=== PATIENT | female | born 1990 | race Caucasian/White ===

== ENCOUNTER → 2018-07-04 08:08 | Outpatient (CLI) | payer OTHER, SELFPAY ==
[2018-07-04 09:56] LABS: Add Manual Diff / Slide Review NO; Basophils Absolute Auto 0 /uL (0-100); Basophils Percent Auto 0.6 % (0-2); Eosinophils Absolute Auto 200 /uL (0-450); Eosinophils Percent Auto 3.3 % (2-4); Hematocrit 40.2 % (36-46); Lymphocytes Absolute Auto 1600 /uL (1100-4500); Lymphocytes Percent Auto 27.7 % (25-40); Mean Corpuscular Hemoglobin 28.8 PG (26-34); Mean Corpuscular Volume 82.5 fL (80-100); Monocytes Absolute Auto 300 /uL (0-900); Monocytes Percent Auto 5.4 % (3-14); Neutrophils Absolute Auto 3700 /uL (1500-7000); Platelet Count 228 X10^3/uL (150-400); Red Blood Cell Count 4.87 X10^6/uL (4.0-5.2); Red Cell Distribution Width 13.6 % (11.6-14.8); White Blood Cell Count 5.9 X10^3/uL (4.5-11.0)
[2018-07-04 10:14] LABS: Alanine Aminotransferase 30 IU/L (9-52); Albumin 4.8 g/dL (3.5-5.0); Albumin Globulin Ratio 1.5 (1.0-2.8); Alkaline Phosphatase 47 U/L (38-126); Aspartate Aminotransferase 25 IU/L (14-36); BUN Creatinine Ratio 15.7 (6-22); Bilirubin Total 0.3 mg/dL (0.2-1.3); Blood Urea Nitrogen 11 mg/dL (7-17); Calcium 9.6 mg/dL (8.4-10.2); Carbon Dioxide 25 mmol/L (22-32); Chloride 104 mmol/L (98-107); Cholesterol 211 mg/dL (140-199); Estimated Glomerular Filt Rate > 60.0 mL/min (>60); Globulin 3.3 g/dL (1.7-4.1); Glucose 103 mg/dL (70-100); HDL Cholesterol 47 mg/dL (40-60); HEMOLYSIS < 15 (0-50); LDL Cholesterol Calculated 138 mg/dL (<100); Potassium 4.2 mmol/L (3.4-5.1); Sodium 142 mmol/L (137-145); Total Protein 8.1 g/dL (6.3-8.2); Triglycerides 131 mg/dL (35-150)
[2018-07-04 11:07] LABS: Free T3, Triiodothyronine Free 3.43 pg/mL (2.77-5.27); Free T4, Direct Thyroxine 1.09 ng/dL (0.78-2.19)
[2018-07-04 11:20] LABS: Thyroid Stimulating Hormone 0.85 uIU/mL (0.47-4.68)
== END ==
PROVIDERS: Visit Provider Naturopath
DX: Z00.00 Encounter for general adult medical examination without abnormal findings (principal); E03.9 Hypothyroidism, unspecified
CPT/HCPCS: 36415; 80053; 80061; 84439; 84443; 84481; 85025

== ENCOUNTER → 2020-06-16 09:09 | Outpatient (CLI) | payer OTHER, SELFPAY | PROVIDERS: PCP Registered Nurse; Visit Provider Physician Assistant | DX: N39.0 Urinary tract infection, site not specified (principal) | CPT/HCPCS: 87077; 87086; 87186 ==

== ENCOUNTER → 2021-07-28 11:36 | Outpatient (CLI) | payer OTHER, SELFPAY | PROVIDERS: PCP Registered Nurse; Visit Provider Nurse Practitioner Family | DX: R30.0 Dysuria (principal) | CPT/HCPCS: 87077; 87086; 87186 ==

== ENCOUNTER → 2024-02-24 08:44 | Outpatient (CLI) | payer OTHER, SELFPAY | PROVIDERS: Referring Provider Specialist; Visit Provider Specialist | DX: Z31.69 Encounter for other general counseling and advice on procreation (principal) | CPT/HCPCS: 36415; 84144 ==

== ENCOUNTER 2024-05-27 13:25 | Day surgery (SDC) | payer OTHER, SELFPAY ==
[2024-05-27] MEDS: LACTATED RINGERS 1,000 ML 42 ML IV (14:30)
[2024-05-27] MEDS: ACETAMINOPHEN IV 1,000 MG/100 ML VIAL 400 MG IV (14:31)
[2024-05-27] MEDS: SCOPOLAMINE 1 PATCH TOP (14:31)
[2024-05-27 14:35] VITALS: BP 140/78; PULSE 98; RESP 16; TEMP 36.6; O2SAT 99; BMI 35.2
--- NOTE | 2024-05-27 15:02 | PM.GYNHP.1 ---
History of Present Illness History of Present Illness Reason for admission: pelvic pain Narrative: Spring Coffey is a 33 year old female G0 with deep dyspareunia and severe dysmenorrhea. She presents for a diagnostic laparoscopy and treatment of endometriosis if present. [facility] Medical History (Updated 05/22/24 @ 06:44 by Aracely Thompson MD) Rosacea (~2016) PCOS (polycystic ovarian syndrome) (~2011) Painful menstrual periods Heavy menstrual period Frequent UTI (~2009) Hypothyroidism (~2008) Surgical History [place] teeth removed (~2011) Family History Father Hypertension Hyperlipidemia Grandfather History of heart disease Social History household members: spouse Smoking Status: Never smoker second hand exposure: Yes (I was as a kid, but not now.) alcohol intake: current substance use type: does not use Meds Home Medications and Allergies Home Medications Medication Instructions Recorded Confirmed Type liothyronine 5 mcg tablet 5 mcg PO DAILY 09/21/18 05/27/24 History levothyroxine 75 mcg tablet 75 mcg PO DAILY 10/10/18 05/27/24 History clomiphene citrate 50 mg tablet 50 mg PO DAILY Infertility 5 days 01/03/24 05/15/24 Rx (Clomid) #5 tabs Allergies Allergy/AdvReac Type Severity Reaction Status Date / Time No Known Drug Allergies Allergy Verified 05/27/24 14:07 Exam Vital Signs (past 8 hours): - 05/27/24 14:35 Temperature 97.8 F Pulse Rate 98 H Respiratory Rate 16 Blood Pressure 140/78 Pulse Oximetry 99 Oxygen Delivery Method Room Air Oxygen Delivery Method Room Air Narrative Exam Narrative: HEENT: No thyromegaly, no anterior cervical or supraclavicular lymphadenopathy. Lungs:Clear to auscultation bilaterally, no wheezes. Cardiovascular: Regular rate and rhythm, no murmurs, rubs, or gallops. Abdomen: No scars. No hepatosplenomegaly. No masses palpable. External genitalia: Normal Vagina: Normal Cervix: Normal Bimanual exam: 6 Week size anteverted uterus. Mobile. Bilateral uterosacral tenderness Extremities: No edema Assessment & Plan Assessment & Plan narrative: Assessment: 33-year-old 0 with deep dyspareunia and severe dysmenorrhea Plan: Diagnostic laparoscopy with treatment of endometriosis. The risks, benefits, and alternatives to the procedure were explained to the patient. The risks including bleeding, infection, injury to the bowel, bladder, or ureters. She understands these risks and agrees to proceed. A full par Q was held and consent form was signed. Time-Based Coding :: [TOTAL MINUTES] spent with patient and on the chart (including review of chart, obtaining history, exam, reviewing outside data, placing orders, documenting exam and treatment plan, and counseling patient) on [DATE].
--- NOTE | 2024-05-27 15:07 | PM.PREOP ---
Pre-operative Note Interval Note History & Physical reviewed/Exam performed by Physician: Yes Changes to H&P: No H&P completed within 30 days and has changed as indicated here:: 05/27/24
--- NOTE | 2024-05-27 15:36 | SUR.OPER ---
Lithotomy on padded OR bed, head on pillow, arms secured on padded arm boards at <90 degrees abduction. Legs secured in padded yellow fins stirrups.
[2024-05-27] MEDS: METHYLENE BLUE 50 MG/10 ML VIAL 30 MG IV (15:58)
[2024-05-27] MEDS: BUPIVACAINE 0.5% W/ EPI (PF) 30 ML VIAL INJ (16:08)
[2024-05-27 16:30] VITALS: BP 87/51; PULSE 86; RESP 14; TEMP 36.7; O2SAT 88
[2024-05-27 16:35] VITALS: BP 113/76; PULSE 93; RESP 13; O2SAT 98
--- NOTE | 2024-05-27 16:38 | PM.GYNOP.1 ---
Operative Date/Time/Diagnoses Date of procedure: 05/27/24 Time of procedure: 16:38 Pre-op diagnosis: Severe dysmenorrhea and dyspareunia Post-op diagnosis: same Procedure & Clinicians Procedure: Procedures Operation Date: 05/27/24 14:45 Actual Procedure Side Surgeon p Diagnostic Laparoscopy, fulguration of Endometriosis, chromotubation Aracely Thompson MD Indications: 33-year-old with dysmenorrhea and deep dyspareunia Suspect endometriosis Surgeon: Aracely Thompson Anesthesia Type: General and Local Operative Notes Findings: 12 week size fibroid uterus Endometriosis of the right ovary Normal right tube Left tube and ovary could not be visualized adequately Normal liver and gallbladder Normal appendix Spill from right tube with chromotubation Closure Type: primary Specimen(s): none Estimated blood loss (mL): 5 Blood products transfused: none Procedure in detail: After informed consent was obtained, the patient was taken to the operating room where she was placed in the dorsal supine position. After adequate general endotracheal anesthesia was achieved, she was placed in the dorsal lithotomy position, and prepped and draped in the usual sterile fashion. A time-out was performed. A bivalve speculum was placed into the vagina and the anterior lip of the cervix was grasped with a single-tooth tenaculum. The cervical os was sequentially dilated until the Zumi uterine manipulator could pass easily into the endometrial cavity. The single-tooth tenaculum was removed from the anterior lip of the cervix. The bivalve speculum was removed from the vagina. Attention was then turned to the abdomen where 6 cc of 0.5% Marcaine with epinephrine were injected in the umbilical fold. A 5 mm incision was made. The Veress needle was placed into the peritoneal cavity, and its placement confirmed by aspiration and drop test. The abdominal cavity was insufflated with 4.2 L of CO2. The Veress needle was removed, and a 5 mm trocar was placed under direct visualization. Initial inspection of the abdomen and pelvis required another trocar, so 6 cc of 0.5% Marcaine with epinephrine were injected 4 cm left lateral to the umbilicus and a 5 mm incision was made. A 5 mm trocar was placed under direct visualization. A second 5 mm trocar was placed on the right side after 6 cc of 0.5% Marcaine with epinephrine were injected. The upper abdomen and right lower quadrant were examined with findings noted above. There was significant endometriosis of the right ovary. This was fulgurated with spatula cautery. The left ovary could not be adequately visualized. A part of the left tube could be seen. There were significant adhesions down on the left side. The uterus could not be adequately elevated out of the pelvis to examined the posterior cul-de-sac. The anterior cul-de-sac did not have any evidence of endometriosis. A decision was made to proceed with the chromotubation. Dilute methylene blue was placed through the Zumi uterine manipulator there was spill from the right tube. Could not adequately visualize the left tube to see if there was any spill. The pelvis was copiously irrigated with warm normal saline. No bleeding was noted. The instruments were removed from the abdomen. The CO2 was allowed to escape. The incisions were closed with 4-0 Monocryl in a subcuticular fashion. Steri-Strips and Allevyn dressings were placed. The Zumi uterine manipulator was removed from the uterus. Sponge, lap, and instrument counts were correct x2. The patient tolerated the procedure well, and was taken to PACU in stable condition. Complications: none Post-operative Condition: stable Disposition: PACU Plan for aftercare: Home after recovery
[2024-05-27 16:40] VITALS: BP 122/54; PULSE 84; RESP 14; O2SAT 99
[2024-05-27] MEDS: KETOROLAC 30 MG/ML VIAL IV (16:42)
[2024-05-27 16:47] VITALS: BP 125/86; PULSE 97; RESP 15; O2SAT 97
[2024-05-27] MEDS: OXYCODONE IR 5 MG TABLET PO (16:50)
[2024-05-27 16:57] VITALS: BP 126/82; PULSE 91; RESP 15; TEMP 36.7; O2SAT 97
== END 2024-05-27 15:20 | disposition home or self-care (01) ==
PROVIDERS: PCP Nurse Practitioner Family; Referring Provider Obstetrics & Gynecology; Visit Provider Obstetrics & Gynecology
PROC: 0U5B4ZZ Destruction of Endometrium, Percutaneous Endoscopic Approach (ICD-10-PCS; CPT 58662; principal; 2024-05-27 14:45)
DX: N94.6 Dysmenorrhea, unspecified (principal); N94.10 Unspecified dyspareunia; N80.101 Endometriosis of right ovary, unspecified depth; N73.6 Female pelvic peritoneal adhesions (postinfective)
CPT/HCPCS: 58662; 81025; J0134; J1100; J1885; J2250; J2405; J2704; J3010; Q9968

== ENCOUNTER → 2024-09-20 16:23 | Outpatient (CLI) | payer OTHER, SELFPAY | PROVIDERS: PCP Nurse Practitioner Family; Visit Provider Obstetrics & Gynecology | DX: N97.9 Female infertility, unspecified (principal) | CPT/HCPCS: 87563; 87798 ==